=== PATIENT | female | born 1990 | race Caucasian/White ===

== ENCOUNTER 2017-07-22 10:03 | Emergency (ER) | payer BC ==
[2017-07-22 10:18] VITALS: TEMP 98.1; BMI 27.2
--- NOTE | 2017-07-22 10:18 | PDOC ---
Attending Attestation - Resident Resident Name: Froilan Khan - ED Attending Attestation I have performed the following: I have examined & evaluated the patient, The case was reviewed & discussed with the resident, I agree w/resident's findings & plan, Exceptions are as noted - HPI HPI: 07/22/17 10:35 26 yo female successful gastric bypass 3 years ago presents with diarrhea and right lower quadrant abdominal pain - Physicial Exam PE: 07/22/17 10:36 Tender RLQ without any peritoneal signs, non toxic, NAD - Medical Decision Making 07/22/17 10:[address] Khan assessment and plan
[2017-07-22] MEDS ORDERED: SODIUM CHLORIDE 1,000 ML IV STA (10:33)
[2017-07-22] MEDS ORDERED: ONDANSETRON 4 MG/2 ML VIAL IVPB ONE (10:33)
[2017-07-22] MEDS ORDERED: ONDANSETRON 4 MG/2 ML VIAL ONE (10:38)
--- NOTE | 2017-07-22 10:42 | PDOC ---
History of Present Illness - General Chief Complaint: Pain Stated Complaint: ABD PAIN Time Seen by Provider: 07/22/17 10:17 History Source: Patient Exam Limitations: No Limitations - History of Present Illness Initial Comments: 07/22/17 10:37 Patient is a 26F with history of gastric bypass (2013, no complications) here today with RLQ abdominal pain. The pain started yesterday. Associated symptoms include nausea and diarrhea. She endorses about 6 episodes of non-bloody diarrhea. Patient says that pain is increased with inspiration. LMP 3 wks ago. No sick contacts, no abnormal PO intake. Denies fevers, chills. Past History - Past Medical History Allergies/Adverse Reactions: Allergies Allergy/AdvReac Type Severity Reaction Status Date / Time No Known Allergies Allergy Verified 07/22/17 10:07 Other medical history: NONE - Surgical History GI Surgery: Yes (BYPASS) - Psycho/Social/Smoking Cessation Hx Suicidal Ideation: No Smoking History: Never smoked Hx Alcohol Use: Yes (SOCIAL) Drug/Substance Use Hx: No Substance Use Type: None Review of Systems - Review of Systems Comments:: 07/22/17 10:41 GENERAL/CONSTITUTIONAL: No fever or chills. No weakness. HEAD, EYES, EARS, NOSE AND THROAT: No change in vision. No ear pain or discharge. No sore throat. CARDIOVASCULAR: No chest pain or shortness of breath RESPIRATORY: No cough, wheezing, or hemoptysis. GASTROINTESTINAL: Positive for nausea and diarrhea. Negative for: vomiting or constipation. GENITOURINARY: No dysuria, frequency, or change in urination. SKIN: No rash NEUROLOGIC: No headache, vertigo, loss of consciousness, or change in strength/ sensation. HEMATOLOGIC/LYMPHATIC: No anemia, easy bleeding, or history of blood clots. ALLERGIC/IMMUNOLOGIC: No hives or skin allergy. *Physical Exam - Vital Signs Last Vital Signs Temp Pulse Resp BP Pulse Ox 98.1 F 95 H 18 145/76 100 07/22/17 10:05 07/22/17 10:05 07/22/17 10:05 07/22/17 10:05 07/22/17 10:05 - Physical Exam Comments: 07/22/17 10:42 GENERAL: Awake, alert, and fully oriented, in no acute distress HEAD: No signs of trauma, normocephalic, atraumatic EYES: PERRLA, EOMI, sclera anicteric, conjunctiva clear ENT: Auricles normal inspection, hearing grossly normal, nares patent, oropharynx clear without exudates. Moist mucosa LUNGS: No distress, speaks full sentences, clear to auscultation bilaterally HEART: Regular rate and rhythm, normal S1 and S2, no murmurs, rubs or gallops, peripheral pulses normal and equal bilaterally. ABDOMEN: Soft, normoactive bowel sounds. Tenders to palpation in RLQ. No guarding, no rebound. No masses EXTREMITIES: Normal inspection, Normal range of motion, no edema. No clubbing or cyanosis. NEUROLOGICAL: Cranial nerves II through XII grossly intact. Normal speech, normal gait, no focal sensorimotor deficits SKIN: Warm, Dry, normal turgor, no rashes or lesions noted. ED Treatment Course - LABORATORY CBC & Chemistry Diagram: 07/22/17 10:50 07/22/17 10:50 - Medications Given in the ED: ED Medications Discontinued Medications Generic Name Dose Route Start Last Admin Trade Name Freq PRN Reason Stop Dose Admin Ondansetron HCl 4 mg 07/22/17 10:33 07/22/17 10:36 Zofran Injection IVPB 07/22/17 10:34 4 mg ONCE ONE Administration Medical Decision Making - Medical Decision Making 07/22/17 10:43 Patient is a 26F with history of gastric bypass here today complaining of RLQ pain. Vital signs stable and normal. DDx includes, but is not limited to: appendicitis, SBO, enteritis. Will evaluate with CBC, CMP, Lipase, UA, Upreg and CT abdomen. Will treat with 1L NS and zofran. 07/22/17 11:56 CBC normal, CMP shows glucose of 58. UA normal. Fingerstick done before treatment, 73. Given 25mg dextrose. 07/22/17 12:44 CT Abd/Pelvis - The partially visualized appendix demonstrates no discrete abnormality. No evidence of pneumoperitoneum, bowel obstruction or abscess. A small amount of nonspecific free fluid is noted within the pelvic cul-de-sac. The liver, spleen, pancreas, gallbladder, adrenal glands and kidneys demonstrate no discrete abnormality. Status post gastric surgery. There is no aortic aneurysm. No definite lymphadenopathy is noted. There is no obvious adnexal pathology allowing for contiguous unopacified bowel loops. No gross enteric abnormality is noted. Impression: A small amount of free fluid is seen within the cul-de-sac which could be on a physiologic basis. 07/22/17 13:16 Discharged to home with PCP followup. Return precautions given and patient verbalized understanding. *DC/Admit/Observation/Transfer Diagnosis at time of Disposition: Abdominal pain Qualifiers: Abdominal location: right lower quadrant Qualified Code(s): R10.31 - Right lower quadrant pain - Discharge Dispostion Disposition: HOME Condition at time of disposition: Good Admit: No - Patient Instructions Printed Discharge Instructions: DI for Abdominal Pain-Adult - Attestations Physician Attestion: 07/22/17 12:45 I, Dr. Froilan Khan, attest that this document has been prepared under my direction and personally reviewed by me in its entirety. I further attest, that it accurately reflects all work, treatment, procedures and medical decision -making performed by me.
[2017-07-22 10:56] LABS: BASOPHIL 0.4 % (0-2.0); EOSINOPHIL 1.9 % (0-4.5); MCH 30.5 pg (25.7-33.7); MEAN CELL VOLUME 92.3 fl (80-96); NEUTROPHILS 65.7 % (42.8-82.8); PLATELET COUNT 281 K/MM3 (134-434); RDW 13.3 % (11.6-15.6); WHITE BLOOD COUNT 6.7 K/mm3 (4.0-10.0)
[2017-07-22 11:20] LABS: URINE APPEARANCE SLCLOUDY; URINE BILIRUBIN NEGATIVE (NEGATIVE); URINE BLOOD NEGATIVE (NEGATIVE); URINE COLOR YELLOW; URINE GLUCOSE (UA) NEGATIVE (NEGATIVE); URINE KETONE NEGATIVE (NEGATIVE); URINE LEUK ESTERASE NEGATIVE (NEGATIVE); URINE NITRITE NEGATIVE (NEGATIVE); URINE PROTEIN NEGATIVE (NEGATIVE); URINE UROBILINOGEN NEGATIVE mg/dL (0.2-1.0)
[2017-07-22 11:27] LABS: ALBUMIN 4.1 g/dl (3.4-5.0); ALK PHOS 105 U/L (45-117); ANION GAP 4 (8-16); BILIRUBIN,TOTAL 0.3 mg/dL (0.2-1.0); CALCIUM 9.1 mg/dL (8.5-10.1); CO2 30 mmol/L (21-32); CREATININE 0.6 mg/dL (0.55-1.02); SGOT/AST 16 U/L (15-37); SGPT/ALT 21 U/L (12-78); TOT PROT 7.9 g/dl (6.4-8.2)
[2017-07-22 11:29] LABS: GLUCOSE,RANDOM 49 mg/dL (74-106)
[2017-07-22] MEDS ORDERED: DEXTROSE 50%-WATER - 25 GM/50 ML VIAL IVPUSH ONE (11:31)
[2017-07-22] MEDS ORDERED: DEXTROSE 50%-WATER 50 ML DISP.SYRIN ONE (11:37)
[2017-07-22 12:56] VITALS: BP 138/66; PULSE 78
== END 2017-07-22 12:56 | disposition home or self-care (01) ==
LOC: JER 10:03
PROC: 3E0337Z Introduction of Electrolytic and Water Balance Substance into Peripheral Vein, Percutaneous Approach (ICD-10-PCS; principal; 2017-07-22)
PROC: 3E033GC Introduction of Other Therapeutic Substance into Peripheral Vein, Percutaneous Approach (ICD-10-PCS; 2017-07-22)
DX: R10.31 Right lower quadrant pain (principal); Z98.84 Bariatric surgery status
CPT/HCPCS: 36415; 74177-TC; 80053; 81003; 83690; 84703; 85025; 99282-25